=== PATIENT | female | born 1940 | race Caucasian/White ===

== ENCOUNTER 2019-04-08 07:25 | Day surgery (SDC) | payer OTHER | END 2019-04-08 13:35 | disposition home or self-care (01) | LOC: AMB-ENDOS 07:25 | DX: D12.3 Benign neoplasm of transverse colon (principal); K57.32 Diverticulitis of large intestine without perforation or abscess without bleeding; K57.30 Diverticulosis of large intestine without perforation or abscess without bleeding; K64.1 Second degree hemorrhoids ==

== ENCOUNTER 2020-05-30 11:00 | Inpatient (IN) | payer OTHER ==
[~2020-05-30] VITALS: Ht 172.7 cm; Wt 85.7 kg
[2020-05-30] MEDS ORDERED: CARDURA8 MG PO (14:41)
[2020-05-30] MEDS ORDERED: PROSCAR5 MG PO (14:41)
[2020-06-06] MEDS ORDERED: METOPROLOL SUCC50 MG (13:04)
[2020-06-06] MEDS ORDERED: AMLODIPINE BESYL5 MG (13:04)
[2020-06-06] MEDS ORDERED: FENOFIBRATE160 MG (13:04)
[2020-06-09] MEDS ORDERED: DOXAZOSIN MESYLA8 MG PO (13:03)
== END 2020-06-09 14:38 | disposition home or self-care (01) | DRG 331 ==
LOC: SURH 06-06 08:55 → O/R 06-06 08:55 → SURH 06-06 10:30
PROVIDERS: ADMIT Colon & Rectal Surgery; ATTEND Colon & Rectal Surgery
PROC: 0DJD8ZZ Inspection of Lower Intestinal Tract, Via Natural or Artificial Opening Endoscopic (ICD-10-PCS; 2020-06-06)
PROC: 0DBN4ZZ Excision of Sigmoid Colon, Percutaneous Endoscopic Approach (ICD-10-PCS; principal; 2020-06-06 10:30)
DX: K57.32 Diverticulitis of large intestine without perforation or abscess without bleeding (principal); I13.10 Hypertensive heart and chronic kidney disease without heart failure, with stage 1 through stage 4 chronic kidney disease, or unspecified chronic kidney disease; N18.32 Chronic kidney disease, stage 3b; E78.49 Other hyperlipidemia